=== PATIENT | male | born 2000 | race Caucasian/White ===

== ENCOUNTER 2022-03-13 11:05 | Emergency (ER) | payer OTHER ==
[~2022-03-13] VITALS: Ht 193 cm; Wt 127.9 kg
--- NOTE | 2022-03-13 11:27 | NUR ---
BIBS C/O L MID&LOWER BACK PAIN STARTED LAST NIGHT. RATES PAINS 8/10. WILL CONTINUE TO MONITOR THE PATIENT.
[2022-03-13] MEDS ORDERED: KETOROLAC TROMETHAMINE INJ 30 MG/ML VIAL ONE (12:58)
[2022-03-13] MEDS ORDERED: KETOROLAC TROMETHAMINE INJ 30 MG/ML VIAL IM ONE (13:00)
[2022-03-13 13:28] VITALS: BP 131/72
--- NOTE | 2022-03-13 13:28 | NUR ---
Patient discharged to home in stable condition. Written and verbal after care instructions given. Patient verbalizes understanding of instruction.
== END 2022-03-13 13:28 | disposition home or self-care (01) ==
LOC: ER 11:08
DX: M62.830 Muscle spasm of back (principal)
CPT/HCPCS: 71046; J1885